=== PATIENT | male | born 1955 | race Caucasian/White ===

== ENCOUNTER 2020-01-14 22:22 | Emergency (ER) | payer BC ==
[2020-01-14] MEDS ORDERED: SODIUM CHLORIDE 0.9% 1,000 ML IV STA (22:28)
[2020-01-14] MEDS ORDERED: ASPIRIN 81 MG PO STA (22:44)
[2020-01-14] MEDS ORDERED: MORPHINE SULFATE 4 MG/ML SYRINGE IVP STA (22:44)
[2020-01-14 22:52] LABS: Basophils # (A) 0.1 k/uL (0-0.2); Basophils % (A) 1 %; Eosinophils # (A) 0.3 k/uL (0-0.7); Eosinophils % (A) 3 %; HCT 46.5 % (39.0-53.0); HGB 14.9 gm/dL (13.0-17.5); Lymphocytes # (A) 2.2 k/uL (1.0-4.8); Lymphocytes % (A) 27 %; MCH 29.3 pg (25.0-35.0); MCHC 32.1 g/dL (31.0-37.0); MCV 91.3 fL (80.0-100.0); Mean Platelet Volume 7.1; Monocytes # (A) 0.6 k/uL (0-1.0); Monocytes % (A) 7 %; Neutrophils # (A) 4.6 k/uL (1.3-7.7); Neutrophils % (A) 58 %; Platelet Count 212 k/uL (150-450); RBC 5.09 m/uL (4.30-5.90); RDW 13.5 % (11.5-15.5); WBC 7.9 k/uL (3.8-10.6)
--- NOTE | 2020-01-14 22:54 | XR ---
EXAMINATION TYPE: XR chest 2V DATE OF EXAM: 01/14/2020 COMPARISON: NONE HISTORY: Chest pain TECHNIQUE: 2 views FINDINGS: Heart is normal. Lungs are clear of consolidation. There is a small infiltrate in the right lower lobe which is poorly marginated. There is no pleural effusion. There are no hilar masses. Ther e are chest leads. Bony thorax is intact. IMPRESSION: Small less than 2 cm poorly marginated infiltrate in the right lower lobe. Normal heart.
--- NOTE | 2020-01-14 22:56 | ED ---
Chest Pain HPI - General Chief Complaint: Chest Pain Stated Complaint: Chest Pains Time Seen by Provider: 01/14/20 22:28 Source: patient, family Mode of arrival: ambulatory - History of Present Illness Initial Comments: Ghanshyam is a 64yo male with past medical history of coronary artery disease status post stenting in the past. Patient presents to the ER today with complaint of 2 hours of epigastric and retrosternal chest pain. Patient reports pain began without provocation is not associated with any nausea, vomiting, shortness breath, diaphoresis or lightheadedness. His lower than his typical chest pain. Pain is sharp in nature and radiates to the back. Patient denies any recent medication changes. He is not an alcohol drinker. He does still have his gallbladder in place. - Related Data Previous Rx's Medication Instructions Recorded Pantoprazole Sodium [Protonix] 40 mg PO DAILY #30 tablet. 01/15/20 Sucralfate [Carafate] 1 gm PO ACHS #120 ml 01/15/20 Sucralfate [Carafate] 1 gm PO ACHS #60 tablet 01/15/20 Allergies Allergy/AdvReac Type Severity Reaction Status Date / Time rosuvastatin [From Crestor] AdvReac Unknown Verified 01/14/20 22:27 Review of Systems ROS Statement: Those systems with pertinent positive or pertinent negative responses have been documented in the HPI. ROS Other: All systems not noted in ROS Statement are negative. EKG Findings - EKG Comments: EKG Findings:: EKG was obtained due to complaint of epigastric and retrosternal pain, EKG was obtained at 2235, rate is 71, rhythm is sinus with a leftward MI 162, QRS 100, QTC is 439 there are no acute ST elevations or depressions no evidence of acute ischemia or infarction. Past Medical History Past Medical History: Hyperlipidemia, Hypertension, Myocardial Infarction ([place]) History of Any Multi-Drug Resistant Organisms: None Reported Past Surgical History: Heart Catheterization With Stent Past Psychological History: No Psychological Hx Reported Smoking Status: Former smoker Past Alcohol Use History: Occasional Past Drug Use History: Marijuana General Exam - General Exam Comments Initial Comments: Physical Exam GENERAL: Patient is well-developed and well-nourished. Patient is nontoxic and well-hydrated and is in no distress. HENT: Normocephalic, Atraumatic. EYES: PERRL, EOMI PULMONARY: Unlabored respirations. No audible rales rhonchi or wheezing was noted. CARDIOVASCULAR: There is a regular rate and rhythm without any murmurs gallops or rubs. Radial pulses strong equal bilaterally ABDOMEN: Soft and nontender with normal bowel sounds. SKIN: Skin is clear with no lesions or rashes and otherwise unremarkable. : Deferred NEUROLOGIC: Patient is alert and oriented x3. Moving all extremities spontaneously MUSCULOSKELETAL: Normal extremities with adequate strength and full range of motion. No lower extremity swelling or edema. No calf tenderness. PSYCHIATRIC: Normal psychiatric evaluation. Course Vital Signs 01/14/20 01/14/20 01/15/20 22:23 23:09 00:00 Temperature 97.6 F Pulse Rate 69 68 65 Respiratory 18 20 18 Rate Blood Pressure 202/120 181/108 188/115 O2 Sat by Pulse 98 98 98 Oximetry 01/15/20 00:32 Temperature Pulse Rate 64 Respiratory 18 Rate Blood Pressure 172/109 O2 Sat by Pulse 97 Oximetry Chest Pain MDM - Core Measures AMI Core Measures Followed: Yes - MDM Patient was seen and evaluated, hx obtained from patient and medical record Patient with peigastric pain and pain radiating to back, concern for GI etiology however given extensive cardiac history will obtain EKG, CXR and trop Patient with HTN and chest pain therefore a CTA obtained, no acute findings Patient with persistent HTN - clonidine and enalaprilat ordered Patient with resolution of pain after GI coctail which suggests GI source of pain, patient comfortable with plan for discharge home with medications for gastritis - Wells Criteria Clinical Symptoms of DVT: (0) No No Alternative Diagnosis: (0) No Immobilization of Surgery in Previous 4 Weeks: (0) No Previous DVT/PE: (0) No Hemoptysis: (0) No Malignancy: (0) No - PERC Rule No Prior History pf DVT/PE: (0) No No Recent Trauma or Surgery: (0) No Hemoptysis: (0) No No Exogenous Estrogen: (0) No No Clinical Signs Suggesting DVT: (0) No - MADALYN Score Age > 65: (0) No 3 or more CAD Risk Factors: (1) Yes Known CAD with more than 50% Stenosis: (0) No Aspirin use within the Past 7 Days: (1) Yes Elevated Cardiac Markers: (0) No ST Deviation Greater than 0.5mm: (0) No Disposition Clinical Impression: Gastritis Disposition: HOME SELF-CARE Condition: Stable Instructions (If sedation given, give patient instructions): Gastritis (DC) Additional Instructions: As we discussed your pain seems to be related to inflammation of your stomach I recommend you begin taking protonix daily and carafate before meals Follow up with primary care doctor for referral to GI or surgeon for EGD (scope of the stomach) Return to the ER for any acute worsening or development of new or concerning symptoms Prescriptions: Sucralfate [Carafate] 1 gm PO ACHS #120 ml Sucralfate [Carafate] 1 gm PO ACHS #60 tablet Pantoprazole Sodium [Protonix] 40 mg PO DAILY #30 tablet.dr Is patient prescribed a controlled substance at d/c from ED?: No Referrals: González Leone MD [Primary Care Provider] - 1-2 days
[2020-01-14 23:01] LABS: Albumin 4.3 g/dL (3.5-5.0); Calcium 10.3 mg/dL (8.4-10.2); Magnesium 2.3 mg/dL (1.6-2.3); Potassium 4.4 mmol/L (3.5-5.1); Total Bilirubin 0.4 mg/dL (0.2-1.3); Total Protein 6.9 g/dL (6.3-8.2)
[2020-01-14 23:02] LABS: INR 0.9 (<1.2); Partial Thromboplastin Time 26.2 sec (22.0-30.0); Prothrombin Time 9.5 sec (9.0-12.0)
--- NOTE | 2020-01-15 | CT ---
EXAMINATION TYPE: CT angio chest DATE OF EXAM: 01/14/2020 COMPARISON: HISTORY: chest pain, hx of partial right lobectomy CT DLP: 506.5 mGycm Automated exposure control for dose reduction was used. CONTRAST: Performed with IV Contrast, patient injected with 75 mL of Isovue 370. There are 3-D post processed images. FINDINGS: There is mild pulmonary emphysema. There is no mediastinal adenopathy. Thoracic aorta is intact. Ther e is no aneurysm or dissection. Heart size is normal. There is no pericardial effusion. There are no hilar masses. There is mild reticular infiltrate in the subpleural anterior right upper lobe and midd le lobe. There is no pleural effusion. There is no suspicious pulmonary mass. There is normal contrast opacification of the pulmonary arteries. There are no filling defects.. There is some spurring in the thoracic spine. There is no compression fracture. IMPRESSION: No evidence of pulmonary embolism. Minimal pulmonary emphysema. Mild reticular right upper lobe and r ight middle lobe density consistent with scarring. No suspicious pulmonary mass.
[2020-01-15 00:17] VITALS: RESP 18
[2020-01-15] MEDS ORDERED: MAG HYDROX/AL HYDROX/SIMETH 30 ML, HYOSCYAMINE ELIXIR 10 ML, LIDOCAINE VISCOUS 2% 10 ML PO STA ×3 (00:31)
[2020-01-15] MEDS ORDERED: cloNIDine HCL 0.1 MG TAB PO STA (00:32)
[2020-01-15] MEDS ORDERED: ENALAPRILAT 1.25 MG/ML 1 ML VIAL IVP STA (01:18)
[2020-01-15 01:57] VITALS: BP 171/112; PULSE 67
[2020-01-15 02:06] VITALS: TEMP 98.2
== END 2020-01-15 02:05 | disposition home or self-care (01) ==
LOC: EC 22:22
DX: K29.70 Gastritis, unspecified, without bleeding (principal); I10 Essential (primary) hypertension; R07.9 Chest pain, unspecified; I25.10 Atherosclerotic heart disease of native coronary artery without angina pectoris; I25.2 Old myocardial infarction; Z87.891 Personal history of nicotine dependence; Z88.8 Allergy status to other drugs, medicaments and biological substances; Z95.5 Presence of coronary angioplasty implant and graft
CPT/HCPCS: 36415; 93005; 80053; 83690; 83735; 84484; 85025; 85610; 85730; 71046; 71275; 96374; 96375; 96361 ×3; 99285; J2270; Q9967

== ENCOUNTER 2021-02-06 14:11 | Emergency (ER) | payer BC ==
[2021-02-06 14:52] VITALS: BP 166/68; PULSE 62; RESP 18; TEMP 98.6
[2021-02-06] MEDS ORDERED: DIAZEPAM 5 MG/ML 2 ML INJ IM STA (15:51)
--- NOTE | 2021-02-06 15:53 | ED ---
Back Pain HPI - General Chief Complaint: Back Pain/Injury Stated Complaint: BACK SPASMS Time Seen by Provider: 02/06/21 15:19 Source: patient Limitations: no limitations - History of Present Illness Initial Comments: 65-year-old male presents to the emergency department with a chief complaint of back spasms. Patient reports yesterday and today he was taking objects in and out of a freezer bending over. States that as he was doing it earlier this morning, he began to have sudden onset of spasms on the left lower back region without any radiation. Patient reports there is no particular position that makes him feel better. States the pain is exacerbated with any movement. Alleviated as long as he is able to sit still. States it feels like his "muscles are jumping". Denies any pain in the vertebral region. Denies any abdominal pain chest pain shortness of breath. Denies any saddle anesthesia, urinary retention with overflow or bowel incontinence. - Related Data Previous Rx's Medication Instructions Recorded Pantoprazole Sodium [Protonix] 40 mg PO DAILY #30 tablet.dr 01/15/20 Sucralfate [Carafate] 1 gm PO ACHS #120 ml 01/15/20 Sucralfate [Carafate] 1 gm PO ACHS #60 tablet 01/15/20 Cyclobenzaprine [Flexeril] 5 mg PO TID PRN #15 tablet 02/06/21 Allergies Allergy/AdvReac Type Severity Reaction Status Date / Time rosuvastatin [From Crestor] AdvReac Unknown Verified 02/06/21 14:52 Review of Systems ROS Statement: Those systems with pertinent positive or pertinent negative responses have been documented in the HPI. ROS Other: All systems not noted in ROS Statement are negative. Past Medical History Past Medical History: Hyperlipidemia, Hypertension, Myocardial Infarction ([place]) History of Any Multi-Drug Resistant Organisms: None Reported Past Surgical History: Heart Catheterization With Stent, Orthopedic Surgery Past Psychological History: No Psychological Hx Reported Smoking Status: Former smoker Past Alcohol Use History: Occasional Past Drug Use History: Marijuana General Exam Limitations: no limitations General appearance: alert, in no apparent distress Head exam: Present: atraumatic, normocephalic, normal inspection Eye exam: Present: normal appearance, PERRL, EOMI Pupils: Present: normal accommodation ENT exam: Present: normal exam, normal oropharynx, mucous membranes moist Neck exam: Present: normal inspection, full ROM. Absent: tenderness Respiratory exam: Present: normal lung sounds bilaterally. Absent: respiratory distress Cardiovascular Exam: Present: regular rate, normal rhythm, normal heart sounds. Absent: systolic murmur GI/Abdominal exam: Present: soft. Absent: distended, tenderness, guarding, rebound Extremities exam: Present: normal inspection, full ROM, normal capillary refill. Absent: tenderness, pedal edema, joint swelling Back exam: Present: normal inspection, full ROM, CVA tenderness (L), muscle spasm (Left lumbar region). Absent: tenderness, CVA tenderness (R), paraspinal tenderness, vertebral tenderness Neurological exam: Present: alert, oriented X3 Psychiatric exam: Present: normal affect, normal mood Skin exam: Present: warm, dry, intact, normal color Course Vital Signs 02/06/21 14:46 Temperature 98.6 F Pulse Rate 62 Respiratory 18 Rate Blood Pressure 166/68 O2 Sat by Pulse 96 Oximetry Medical Decision Making - Medical Decision Making 65-year-old male presents to the emergency department with a chief complaint of back spasms. On physical examination, mild tenderness over the left lumbar region. No midline vertebral tenderness. No concern for cauda equina. These do appear to be muscle spasms in strain of the lumbar spine. Patient was given Valium. On reevaluation, he reports improvement in symptoms. He is able to ablate and feels better prior to coming in. I do not feel that imaging is necessary at this time. Patient will be discharged with Tylenol 3 starter pack and Flexeril. Advised not to take the medications together. Advised to alternate between Tylenol and Motrin. Advised to follow-up with an hydramatic specialist. Return parameters were thoroughly discussed patient was understanding and agreeable. Case discussed with physician. Disposition Clinical Impression: Back muscle spasm Disposition: HOME SELF-CARE Condition: Stable Instructions (If sedation given, give patient instructions): Acute Low Back Pain (ED) Additional Instructions: Please return to the Emergency Department if symptoms worsen or any other concerns. Prescriptions: Cyclobenzaprine [Flexeril] 5 mg PO TID PRN #15 tablet PRN Reason: Muscle Spasm Is patient prescribed a controlled substance at d/c from ED?: No Referrals: Samuel Leone MD [Primary Care Provider] - 1-2 days Time of Disposition: 17:02
[2021-02-06] MEDS ORDERED: CYCLOBENZAPRINE 10MG STARTER 3 TAB BTL PO STA (16:51)
[2021-02-06] MEDS ORDERED: ACET/COD 300 MG/30 MG STARTER PACK 6 TAB BTL PO STA (17:01)
== END 2021-02-06 17:27 | disposition home or self-care (01) ==
LOC: EC 14:11 → SUPCPDRO 14:11 → EC 17:27
DX: M62.830 Muscle spasm of back (principal); E78.5 Hyperlipidemia, unspecified; I10 Essential (primary) hypertension; I25.2 Old myocardial infarction; F12.90 Cannabis use, unspecified, uncomplicated; Z87.891 Personal history of nicotine dependence
CPT/HCPCS: 99283; 96372; J3360

== ENCOUNTER → 2023-08-03 | Outpatient (CLI) | payer MEDICARE, OTHER ==
--- NOTE | 2023-08-03 21:53 | US ---
EXAMINATION TYPE: US carotid duplex BILAT DATE OF EXAM: 08/03/2023 COMPARISON: NONE CLINICAL INDICATION: Male, 68 years old with history of C73 MALIGNANT NEOPLASM OF THYROID GLAND; dizz y, no h/o stroke TECHNIQUE: Carotid duplex ultrasound examination. Indirect Doppler criteria was utilized. FINDINGS: EXAM MEASUREMENTS: RIGHT: Peak Systolic Velocity (PSV) cm/sec ----- Right CCA: 72.6 ----- Right ICA: 71.6 ----- Right ECA: 99.5 ICA/CCA ratio: 0.9 RIGHT: End Diastole cm/sec ----- Right CCA: 20.9 ----- Right ICA: 31.3 ----- Right ECA: 19.9 LEFT: Peak Systolic Velocity (PSV) cm/sec ----- Left CCA: 112.0 ----- Left ICA: 74.2 ----- Left ECA: 85.3 ICA/CCA ratio: 0.6 LEFT: End Diastole cm/sec ----- Left CCA: 31.3 ----- Left ICA: 0.0 ----- Left ECA: 11.1 VERTEBRALS (direction of flow): Right Vertebral: Antegrade Left Vertebral: Antegrade Rhythm: Normal YARD SWITCHER NOTES: Mild homogeneous plaque with no stenosis IMPRESSION: Less than 50% stenosis of the bilateral carotid bifurcations. Criteria for Assigning % of Stenosis / Diameter reduction (Estimation based on the indirect measurements of the internal carotid artery velocities (ICA PSV). 1. Normal (no stenosis)=ICA PSV < 125 cm/s: ratio < 2.0: ICA EDV<40 cm/s. 2. Less than 50% stenosis=ICA PSV < 125 cm/s: ratio < 2.0: ICA EDV<40 cm/s. 3. 50 to 69% stenosis=ICA PSV of 125 to 230 cm/s: ration 2.0 ? 4.0: ICA EDV 40-100 cm/s. 4. Greater than 70% stenosis to near occlusion= ICA PSV > 230 cm/s: ratio > 4.0: ICA EDV > 100 cm/s. 5. Near occlusion= ICA PSV velocities may be low or undetectable: variable ratio and ICA EDV. 6. Total occlusion=unable to detect flow.
== END | disposition home or self-care (01) ==
LOC: RADUSWWP 14:58
PROVIDERS: ATTEND Family Medicine
DX: I65.23 Occlusion and stenosis of bilateral carotid arteries (principal)
CPT/HCPCS: 93880

== ENCOUNTER 2023-10-23 09:32 | Day surgery (SDC) | payer OTHER, MEDICARE ==
[2023-10-23 10:12] VITALS: TEMP 98
[2023-10-23] MEDS: IV FLUID CONTINUATION 1,000 ML IV ONE (10:12)
[2023-10-23] MEDS: LACTATED RINGERS 1,000 ML IV SCH (10:20)
[2023-10-23] MEDS ORDERED: PROPOFOL 10 MG/ML 20 ML VIAL IV ONE (10:55)
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
--- NOTE | 2023-10-23 11:12 | P.PCN ---
Date of Procedure: 10/23/23 Procedure(s) Performed: PREOPERATIVE DIAGNOSIS: Colon cancer screening POSTOPERATIVE DIAGNOSIS: Diverticulosis PROCEDURE: Colonoscopy ANESTHESIA: MAC SURGEON: Cyril Qureshi M.D. SPECIMENS: None ENDOSCOPIC PROCEDURE: The patient was placed on the endoscopy table in the left decubitus position. The Olympus colonoscope was inserted into the anus and passed under direct visualization to the proximal ascending colon. I could visualize the cecum from a distance of approximately 5 cm however I could not intubate the base of the cecum. From a distance I saw no abnormalities. The appendix was not visualized. This was despite multiple body position changes and abdominal wall pressure. The patient had fairly significant tortuosity throughout the colon. From that point the scope was slowly withdrawn inspecting all surfaces carefully. There were no neoplastic inflammatory or polypoid lesions throughout the cecum, ascending, transverse, descending, sigmoid and rectum. There was mild scattered diverticulosis noted. Digital rectal examination was normal. The patient was taken to the recovery room in stable condition per anesthesia guidelines. RECOMMENDATIONS: Resume diet. Repeat colonoscopy 10 years.
[2023-10-23 11:32] VITALS: BP 115/77; PULSE 57; RESP 14
== END 2023-10-23 11:54 | disposition home or self-care (01) ==
LOC: ORWHC2ENDO 09:32
PROVIDERS: ATTEND Surgery
DX: Z12.11 Encounter for screening for malignant neoplasm of colon (principal); K57.30 Diverticulosis of large intestine without perforation or abscess without bleeding; J45.909 Unspecified asthma, uncomplicated; I25.2 Old myocardial infarction; I25.10 Atherosclerotic heart disease of native coronary artery without angina pectoris; I10 Essential (primary) hypertension; E78.5 Hyperlipidemia, unspecified; M19.90 Unspecified osteoarthritis, unspecified site; Z79.02 Long term (current) use of antithrombotics/antiplatelets; Z87.891 Personal history of nicotine dependence; Z90.49 Acquired absence of other specified parts of digestive tract; Z88.8 Allergy status to other drugs, medicaments and biological substances; Z79.82 Long term (current) use of aspirin; Z79.51 Long term (current) use of inhaled steroids; Z95.5 Presence of coronary angioplasty implant and graft; Z98.890 Other specified postprocedural states; Z79.899 Other long term (current) drug therapy
CPT/HCPCS: 45378; J2704

== ENCOUNTER → 2024-06-06 | Outpatient (CLI) | payer OTHER, MEDICARE ==
--- NOTE | 2024-06-07 10:58 | MR ---
MRI right hip. HISTORY: Pain. Unilateral primary osteoarthritis. COMPARISON: None TECHNIQUE: Multiecho multiplanar images of the right hip were obtained. FINDINGS: There is no bone contusion or bone marrow edema significant joint space with thinning of the articula r cartilage. A small anterior superior tear of the labrum cannot be excluded. If clinically indicated an MRI arthr ogram would be useful for confirmation. Incidental note is made of a periarticular 2.6 cm multiloculated septated cyst of the left hip likely a ganglion cyst. There is no avascular necrosis. There are no hip deformities. IMPRESSION: 1. No significant osteoarthritis of the right hip. 2. Cannot exclude labral tear as described above. See above for recommendations. 3. Periarticular cyst of the left hip as described above. [facility], Workstation: [id number] 06/07/2024 10:55 AM
== END | disposition home or self-care (01) ==
LOC: RADMRIMAIN 18:21
PROVIDERS: ATTEND Orthopaedic Surgery
DX: M16.11 Unilateral primary osteoarthritis, right hip (principal); M70.61 Trochanteric bursitis, right hip; M25.551 Pain in right hip